=== PATIENT | male | born 1990 ===

== ENCOUNTER 2018-11-05 09:10 | Outpatient (CLI) | payer OTHER ==
--- NOTE | 2018-11-05 10:14 | MRI ---
Exam: Left elbow MRI without IV contrast: HISTORY: Left elbow pain intermittently for years FINDINGS: No significant abnormal marrow signal. Minimal thickening and increased signal in the distal biceps t endon evidence for tendinopathy without evidence for tear or bicipital radialis bursal fluid or bursitis. Very slight thickening of the common extensor tendon insertion without evidence for an asso ciated tear. Ulnar collateral ligament region is unremarkable. Lateral collateral ligament complex is unremarkable. No osteochondral defect. No significant abnormal joint effusion. IMPRESSION: Minimal distal biceps tendon insertion tendinopathy. Slight thickening of the extensor tendon insertion possibly mild tendinopathy. No other significant acute process.
== END 2018-11-05 09:11 | disposition home or self-care (01) ==
LOC: BICMRI 09:10
PROVIDERS: ATTEND Orthopaedic Surgery
DX: M25.522 Pain in left elbow (principal); M67.824 Other specified disorders of tendon, left elbow